=== PATIENT | male | born 1950 | race Caucasian/White ===

== ENCOUNTER 2020-11-28 09:51 | Outpatient (RCR) | payer MEDICARE, OTHER ==
[~2020-11-28 09:51] MED LIST: Z LESCOL MT; Z.0.ALLOPURINOL100 M MT; Z.0.CYMBALTA60 MG MT; Z.0.GABAPENTIN600 MG MT; Z.0.METOPROLOL TART5 MT; Z.0.PLAVIX75 MG MT; Z.0.RAPAFLO8 MG MT
== END 2020-12-10 ==
LOC: OT 09:51
PROVIDERS: ATTEND Specialist
DX: M19.011 Primary osteoarthritis, right shoulder (principal); M75.01 Adhesive capsulitis of right shoulder; M75.81 Other shoulder lesions, right shoulder; M25.511 Pain in right shoulder; M25.611 Stiffness of right shoulder, not elsewhere classified; R53.1 Weakness

== ENCOUNTER 2021-02-17 18:17 | Emergency (ER) | payer MEDICARE, OTHER ==
[~2021-02-17] VITALS: Ht 172.7 cm; Wt 88.5 kg
[2021-02-17] MEDS ORDERED: TETANUS/DIPHTHERIA TOX ADULT 0.5 ML SYR IM ONE (19:45)
[2021-02-17] MEDS ORDERED: LIDOCAINE HCL 1% LOCAL INJ 20 ML VIAL INJ ONE (19:45)
[2021-02-17] MEDS ORDERED: LIDOCAINE HCL 1% LOCAL INJ 20 ML VIAL ONE (19:55)
[2021-02-17] MEDS ORDERED: CEPHALEXIN500 MG PO (20:40)
[2021-02-17] MEDS ORDERED: BACITRACIN ZINC 0.9GM TP ONE (20:45)
== END 2021-02-17 20:56 | disposition home or self-care (01) ==
LOC: ER 18:28
DX: S62.634A Displaced fracture of distal phalanx of right ring finger, initial encounter for closed fracture (principal); S61.314A Laceration without foreign body of right ring finger with damage to nail, initial encounter; W23.1XXA Caught, crushed, jammed, or pinched between stationary objects, initial encounter; Y93.89 Activity, other specified; Y92.015 Private garage of single-family (private) house as the place of occurrence of the external cause
CPT/HCPCS: 12002; 73140; 90714; 99283; J2001

== ENCOUNTER → 2024-10-02 | Day surgery (SDC) | payer MEDICARE, OTHER ==
[2024-10-01 13:28] LABS: BASOPHILS # (AUTO) 0.1 (0.0-0.1); BASOPHILS % 0.9 % (0.0-1.0); EOSINOPHILS # (AUTO) 0.4 (0.0-0.4); EOSINOPHILS % 5.1 % (0.0-6.0); HEMATOCRIT 49.8 % (38.2-49.6); HEMOGLOBIN 16.4 g/dL (14.0-18.0); LYMPHOCYTES # (AUTO) 1.5 (1.0-3.2); LYMPHOCYTES % 18.1 % (18.0-39.1); MEAN CORPUSCULAR HEMOGLOBIN 31.3 pg (28-32); MEAN CORPUSCULAR HGB CONC 32.9 g/dL (31-35); MONOCYTES # (AUTO) 0.6 (0.2-0.8); MONOCYTES % 6.9 % (4.4-11.3); NEUTROPHILS # (AUTO) 5.7 (2.1-6.9); NEUTROPHILS % 68.6 % (38.7-80.0); PLATELET COUNT 208 x10e3/uL (140-360); RED BLOOD COUNT 5.24 x10e6/uL (4.3-5.7); RED CELL DISTRIBUTION WIDTH 13.9 % (11.7-14.4); WHITE BLOOD COUNT 8.23 x10e3/uL (4.8-10.8)
[2024-10-01 13:58] LABS: ANION GAP 15.7 mmol/L (8-16); CALCIUM 8.9 mg/dL (8.4-10.2); CREATININE, SERUM 1.17 mg/dL (0.72-1.25); POTASSIUM 4.7 mmol/L (3.5-5.1)
[~2024-10-02] MED LIST changes: +ASPIRIN81 MG PO; +CEPHALEXIN500 MG PO; +DICYCLOMINE HCL20 MG PO; +DIPHENOXYLATE-A60 ML PO; +FENTANYL CITRATE/PF 100MCG/2 ML INJ ONE; +FLOMAX0.4 MG PO; +LIDOCAINE HCL 2% LOCAL INJ 5 ML SDV VIAL INJ ONE; +LIPITOR20 MG PO; +MULTI-VITAMIN1 EACH PO; +OMEPRAZOLE40 MG PO; +ONDANSETRON HCL INJ 2MG/ML 2ML 2 MG/ML VIAL ONE; +PHENYLEPHRINE HCL 1% 10 MG/ML VIAL ONE; +PROPOFOL IV EMULSION 10 MG/ML 20 ML VIAL ONE; +ROCURONIUM BROMIDE 1 ML IV ONE; +SODIUM CHLORIDE 0.9% 100 ML ONE; +TRAZODONE HCL100 MG PO; +ULTRAM 50MG50 MG PO; -Z.0.GABAPENTIN600 MG MT; +Z.0.GABAPENTIN600 MG PO
[2024-10-02] MEDS: CEFAZOLIN SODIUM 2 GM ONE (06:23)
[2024-10-02] MEDS: LACTATED RINGER'S 1,000 ML ONE (06:23)
[2024-10-02 07:40] VITALS: TEMP 97.1
[2024-10-02 08:46] VITALS: BP 126/54; PULSE 56; RESP 16; O2SAT 95
== END | disposition home or self-care (01) ==
LOC: OR 05:28
PROVIDERS: ATTEND Surgery
DX: S21.201A Unspecified open wound of right back wall of thorax without penetration into thoracic cavity, initial encounter (principal); B99.8 Other infectious disease; L72.0 Epidermal cyst; I10 Essential (primary) hypertension; K50.90 Crohn's disease, unspecified, without complications; X58.XXXA Exposure to other specified factors, initial encounter; Z01.810 Encounter for preprocedural cardiovascular examination; Z01.812 Encounter for preprocedural laboratory examination; Z01.818 Encounter for other preprocedural examination; Z79.02 Long term (current) use of antithrombotics/antiplatelets; Z79.899 Other long term (current) drug therapy; Z95.0 Presence of cardiac pacemaker; Z95.5 Presence of coronary angioplasty implant and graft
CPT/HCPCS: 11042; 36415; 71046; 80048; 85025; 87071; 87075; 87205; 88304; 93005; J2003; J2371; J2405; J2704; J3010; J7050; J7121